=== PATIENT | female | born 1985 | race Caucasian/White ===

== ENCOUNTER 2021-12-22 14:49 | Outpatient (CLI) | payer BC | END 2021-12-22 14:50 | disposition home or self-care (01) | LOC: DTY/OP 14:49 | PROVIDERS: ATTEND Surgery | DX: E66.01 Morbid (severe) obesity due to excess calories (principal) | CPT/HCPCS: 97802 ==

== ENCOUNTER 2022-04-10 16:50 | Outpatient (CLI) | payer BC ==
[2022-04-10 17:42] LABS: #Basophils 0.1 10x3/uL (0.0-0.2); #Eosinphils 0.1 10x3/uL (0.0-0.5); #Monocytes 0.5 10x3/uL (0.0-1.1); #Neutrophils 5.4 10x3/uL (1.5-8.4); %Basophils 0.6 % (0.0-2.0); %Eosinophils 0.9 % (0.0-6.0); %Lymphocytes 41.9 % (18.0-47.0); %Monocytes 4.9 % (0.0-10.0); %Neutrophils 51.5 % (40.0-75.0); Hemoglobin 12.9 g/dL (12.0-15.5); Mean Corpuscular HGB CONC 32.3 g/dL (32.0-36.0); Mean Corpuscular Hemoglobin 27.4 pg (27.0-33.0); Mean Corpuscular Volume 84.9 fl (81.6-98.3); Mean Platelet Volume 11.4 fl (7.4-10.4); Platelet Count 253 10x3/uL (150-450); RBC Distribution Width 13.5 % (11.5-14.5); White Blood Cell (WBC) Count 10.5 10x3/uL (3.5-10.5)
[2022-04-10 17:59] LABS: BHCG - Serum Negative (NEGATIVE); Pregs Control Background? CLEAR/WHITE (CLR/WHITE); Pregs Control Bar Appear? YES (CONTROL BAR)
[2022-04-10 18:07] LABS: ALT (SGPT) 166 U/L (8-55); AST (SGOT) 95 U/L (5-34); Albumin 4.7 g/dL (3.5-5.0); Alkaline Phosphatase 59 U/L (40-110); Anion Gap 18 mmol/L (10-20); BUN (Urea Nitrogen) 12 mg/dL (7.0-18.7); Bilirubin, Total 0.4 mg/dL (0.2-1.2); Calc. Creatinine Clearance 0 mL/min (70-130); Calcium 10.3 mg/dL (7.8-10.44); Carbon Dioxide 20 mmol/L (22-29); Chloride 103 mmol/L (98-107); Estimated GFR 103; Globulin 3.4 g/dL (2.4-3.5); Glucose 91 mg/dL (70-105); Protein, Total 8.1 g/dL (6.0-8.3); Sodium 137 mmol/L (136-145)
[2022-04-10 22:52] LABS: Hemoglobin A1c 6.5 % (4.0-6.0)
== END 2022-04-10 16:51 | disposition home or self-care (01) ==
LOC: LABBT 16:50
PROVIDERS: ATTEND Surgery
DX: Z01.818 Encounter for other preprocedural examination (principal); E66.01 Morbid (severe) obesity due to excess calories
CPT/HCPCS: 71046; 80053; 83036; 84703; 85025; 93005; 93010

== ENCOUNTER 2022-04-10 17:00 | Inpatient (IN) | payer BC ==
[2022-04-14 14:16] VITALS: BMI 37.4
[2022-04-19] MEDS ORDERED: Heparin 5,000 UNITS/ML VIAL ONE (06:21)
[2022-04-19] MEDS ORDERED: Bupivacaine/Epinephrine 0.25% 30 ML VIAL ONE (06:39)
[2022-04-19] MEDS ORDERED: Ketamine 50 MG/ML (10ML VIAL) ONE (06:53)
[2022-04-19] MEDS ORDERED: SUGAMMADEX SODIUM 200 MG/2 ML VIAL ONE (06:53)
[2022-04-19] MEDS ORDERED: Fentanyl 250 MCG/5 ML VIAL ONE (06:53)
[2022-04-19] MEDS ORDERED: Albuterol Sulfate HFA (OR ONLY) ONE (07:03)
[2022-04-19 07:04] LABS: SARS-CoV-2 NAA Rapid Test Not Detected (NotDetected)
[2022-04-19] MEDS ORDERED: Scopolamine 1.5 mg/72 hour Patch ONE (07:12)
[2022-04-19] MEDS ORDERED: CEFAZOLIN 2 GM VIAL ONE (07:16)
[2022-04-19] MEDS ORDERED: Sodium Chloride 0.9% 100 ML ONE (07:16)
[2022-04-19] MEDS ORDERED: Rocuronium Bromide 10 MG/ML (10ML VIAL) ONE (07:32)
[2022-04-19] MEDS ORDERED: PROPOFOL 200 MG/20 ML VIAL ONE (07:32)
[2022-04-19] MEDS ORDERED: PHENYLEPHRINE-NS 100 MCG/ML 10 ML SYRINGE ONE (07:32)
[2022-04-19] MEDS ORDERED: Ondansetron PF 4 MG/2 ML Vial ONE ×3 (07:32→09:03)
[2022-04-19] MEDS ORDERED: Glycopyrrolate 0.2 MG/ML 5 ML SYRINGE ONE (07:32)
[2022-04-19] MEDS ORDERED: Ketorolac Tromethamine 30 MG/ML VIAL ONE (07:32)
[2022-04-19] MEDS ORDERED: ePHEDrine 50 MG/ML VIAL ONE (07:32)
[2022-04-19] MEDS ORDERED: Dexamethasone 20 MG/5 ML VIAL ONE (07:32)
[2022-04-19] MEDS ORDERED: NEOSTIGMINE 3 MG/3 ML SYR 3 MG/3 ML SYRINGE ONE (07:32)
[2022-04-19] MEDS ORDERED: Lidocaine 1% PF 5 ML VIAL ONE (07:32)
[2022-04-19] MEDS ORDERED: Ondansetron HCl/PF 4 MG/2 ML Vial IVP PRN (08:04)
[2022-04-19] MEDS ORDERED: Promethazine HCl 25 MG/ML VIAL IVPB PRN (08:04)
[2022-04-19] MEDS ORDERED: Promethazine HCl 25 MG/ML VIAL IM PRN ×3 (08:04→09:51)
[2022-04-19] MEDS ORDERED: hydrALAZINE 20 MG/ML VIAL SLOW IVP PRN (08:42)
[2022-04-19] MEDS ORDERED: Dextrose 50% Abboject 50 ML SYRINGE SLOW IVP PRN (08:42)
[2022-04-19] MEDS ORDERED: Hydrocodone-Acetamin 15 ML UDCUP PO PRN (08:42)
[2022-04-19] MEDS ORDERED: Dextrose 5% in Water 1,000 ML IV PRN (08:42)
[2022-04-19] MEDS ORDERED: diphenhydrAMINE 50 MG/ML VIAL IVP PRN ×2 (08:42→09:51)
[2022-04-19] MEDS ORDERED: Morphine 4 MG/ML VIAL SLOW IVP PRN (08:42)
[2022-04-19] MEDS ORDERED: Morphine 2 MG/ML VIAL SLOW IVP PRN (08:42)
[2022-04-19] MEDS ORDERED: Ondansetron PF 4 MG/2 ML Vial IVP PRN ×2 (08:42→09:51)
[2022-04-19] MEDS ORDERED: Fentanyl 100 MCG/2 ML VIAL ONE ×2 (08:56→09:15)
[2022-04-19] MEDS ORDERED: HYDROmorphone 0.5 MG/0.5 ML SYRINGE ONE ×3 (09:50→11:12)
[2022-04-19] MEDS ORDERED: diphenhydrAMINE 50 MG/ML VIAL IM PRN (09:51)
[2022-04-19] MEDS ORDERED: diphenhydrAMINE 25 MG CAP PO PRN (09:51)
[2022-04-19] MEDS ORDERED: HYDROmorphone 2 MG/ML VIAL SLOW IVP PRN (09:51)
[2022-04-19] MEDS ORDERED: FENTANYL 500 MCG/10 ML VIAL 2,000 MCG in Sodium Chloride 0.9% 60 ML IV PRN (09:51)
[2022-04-19] MEDS ORDERED: Naloxone HCl 0.4 mg/ml Vial IV PRN (09:51)
[2022-04-19] MEDS ORDERED: Communication Order-Pharmacy FS SCH (10:00)
[2022-04-19] MEDS ORDERED: Ketorolac Tromethamine 30 MG/ML VIAL IVP SCH (12:00)
[2022-04-19] MEDS: Pantoprazole 40 MG VIAL IVP SCH (13:52)
[2022-04-19] MEDS: Enoxaparin Sodium 40 MG/0.4 ML SYRINGE SC SCH (13:52)
[2022-04-19] MEDS: 1/2 NS w/KCL 20 mEq 1,000 ML IV SCH ×2 (13:52→22:00)
[2022-04-19] MEDS: CEFAZOLIN 2 GM in Sodium Chloride 0.9% 100 ML IVPB SCH ×2 (14:19→21:12)
[2022-04-20 05:58] LABS: #Lymphocytes 3.1 thou/uL (1.20-3.40); #Monocytes 0.7 thou/uL (0.11-0.59); %Basophils 0.3 % (0.0-1.0); %Eosinophils 0.3 % (0.0-10.0); %Lymphocytes 35.4 % (21.0-51.0); %Monocytes 7.6 % (0.0-10.0); %Neutrophils 56.4 % (42.0-75.0); Hemoglobin 11.8 g/dL (12.0-16.0); Mean Corpuscular HGB CONC 32.7 g/dL (32.0-36.0); Mean Corpuscular Hemoglobin 28.7 pg (27.0-31.0); Mean Corpuscular Volume 87.6 fl (78.0-98.0); Mean Platelet Volume 9.3 fL (7.4-10.4); Platelet Count 205 10x3/uL (130-400); RBC Distribution Width 12.1 % (11.5-14.5); Red Blood Cell (RBC) Count 4.12 mill/uL (4.20-5.40); White Blood Cell (WBC) Count 8.9 10x3/uL (4.8-10.8)
[2022-04-20 06:19] LABS: Anion Gap 10 mmol/L (10-20); BUN (Urea Nitrogen) 7 mg/dL (7.0-18.7); Calc. Creatinine Clearance 177 mL/min (70-130); Carbon Dioxide 23 mmol/L (22-29); Chloride 107 mmol/L (98-107); Estimated GFR 101; Glucose 105 mg/dL (70-105); Potassium 4.1 mmol/L (3.5-5.1); Sodium 136 mmol/L (136-145)
[2022-04-20] MEDS: 1/2 NS w/KCL 20 mEq 1,000 ML IV SCH ×2 (07:05→10:06)
[2022-04-20] MEDS: Hydrocodone-Acetamin 15 ML UDCUP PO PRN ×2 (07:50→13:01)
[2022-04-20] MEDS: Pantoprazole 40 MG VIAL IVP SCH (07:50)
[2022-04-20] MEDS: Enoxaparin Sodium 40 MG/0.4 ML SYRINGE SC SCH (07:50)
[2022-04-20] MEDS: Ketorolac Tromethamine 30 MG/ML VIAL IVP SCH ×2 (07:50→13:01)
[2022-04-20] MEDS ORDERED: Ketorolac Tromethamine 30 MG/ML VIAL IVP SCH (08:00)
[2022-04-20 13:44] VITALS: BP 122/79; TEMP 98.1
== END 2022-04-20 13:15 | disposition home or self-care (01) | DRG 621 ==
LOC: SURG A 04-19 06:02 → SJJU 04-19 13:46
PROVIDERS: ADMIT Surgery; ATTEND Surgery
PROC: 0DB64Z3 Excision of Stomach, Percutaneous Endoscopic Approach, Vertical (ICD-10-PCS; principal; 2022-04-19)
DX: E66.01 Morbid (severe) obesity due to excess calories (principal); E11.9 Type 2 diabetes mellitus without complications; Z98.890 Other specified postprocedural states; Z91.013 Allergy to seafood; Z68.37 Body mass index [BMI] 37.0-37.9, adult; Z20.822 Contact with and (suspected) exposure to COVID-19
CPT/HCPCS: 36415; 36416; 80048; 85025; 88307; C9113; J1100; J1170; J1644; J1650; J1885; J2405; J2704; J3010; J3480; J3490; U0002